=== PATIENT | female | born 2005 | race Caucasian/White ===

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

== ENCOUNTER 2023-09-09 12:59 | Outpatient (CLI) | payer BC, SELFPAY | END 2023-09-09 13:00 | disposition home or self-care (01) | LOC: NFLDREF 09-15 11:48 | PROVIDERS: Visit Provider Physician Assistant | DX: R35.0 Frequency of micturition (principal); R30.0 Dysuria; N89.8 Other specified noninflammatory disorders of vagina; B37.31 Acute candidiasis of vulva and vagina | CPT/HCPCS: 87086 ==

== ENCOUNTER 2023-09-23 11:48 | Outpatient (CLI) | payer BC, SELFPAY | END 2023-09-23 11:49 | disposition home or self-care (01) | LOC: NFLDREF 11:49 | PROVIDERS: Visit Provider Physician Assistant | DX: N93.8 Other specified abnormal uterine and vaginal bleeding (principal) | CPT/HCPCS: 84443 ==

== ENCOUNTER 2023-09-29 12:52 | Outpatient (CLI) | payer BC, SELFPAY ==
--- NOTE | 2023-09-29 13:00 | CRLHL7_ITS ---
For Patients: As a result of the Century Cures Act, medical imaging exams and procedure reports are released immediately into your electronic medical record. You may view this report before your referring provider. If you have questions, please contact your health care provider. INDICATION: Abnormal uterine and vaginal bleeding. TECHNIQUE: Transabdominal and transvaginal pelvic ultrasound. FINDINGS: Uterus is anteverted and measures 7.1 x 3.2 x 4.6 cm. There is fluid and echogenic material within the endometrial canal. Double-layer endometrial stripe thickness 2 mm. Both ovaries appear normal and have normal color flow. No adnexal mass or free a trace pelvic free fluid. IMPRESSION: Simple fluid and echogenic material within the endometrial cavity, nonspecific. Echogenic material could be blood or soft tissue. Dictated by Aryan Michaud MD @ 09/29/2023 3:51:16 PM (Electronically Signed)
== END 2023-09-29 12:53 | disposition home or self-care (01) ==
LOC: US 12:52
PROVIDERS: Visit Provider Physician Assistant
DX: N93.8 Other specified abnormal uterine and vaginal bleeding (principal)
CPT/HCPCS: 76830; 76856

== ENCOUNTER 2023-10-06 20:58 | Outpatient (CLI) | payer BC, SELFPAY | END 2023-10-06 20:59 | disposition home or self-care (01) | LOC: SLEEP 20:59 | PROVIDERS: Visit Provider Internal Medicine | DX: G47.10 Hypersomnia, unspecified (principal) | CPT/HCPCS: 95810 ==